=== PATIENT | female | born 1995 ===

== ENCOUNTER 2017-06-15 18:30 | Emergency (ER) | payer MEDICAID ==
--- NOTE | 2017-06-15 19:40 | C.PDOC ---
History Of Present Illness 21 y/o female, 18 weeks preg, c/o right sided headache x 3 days, gradual onset, similar to headaches she has had in the past. +associated photophobia, nauseous yesterday, none today, no neck pain or stiffness. no fever or chills. no vision changes. pt denies abdominal pain and vaginal bleeding. pt reports taking one tab 500 mg tylenol per day for the first 2 days with mild relief and two tabs today, at 9 am and 3 pm with mild relief. Time Seen by Provider: 06/15/17 19:23 Chief Complaint (Nursing): Headache History Per: Patient History/Exam Limitations: no limitations Onset/Duration Of Symptoms: Days (3) Current Symptoms Are (Timing): Still Present Severity: Moderate Quality: "Pain" Preceeding Symptoms: denies: Visual Disturbances Associated Symptoms: Photophobia, Nausea. denies: Blurred Vision, Vomiting, Extremity Weakness Past Medical History Reviewed: Historical Data, Nursing Documentation, Vital Signs Vital Signs: Last Vital Signs Temp 97.8 F 06/15/17 20:46 Pulse 85 06/15/17 20:46 Resp 16 06/15/17 20:46 BP 97/64 L 06/15/17 20:46 Pulse Ox 99 06/15/17 20:46 - Medical History PMH: No Chronic Diseases Surgical History: Appendectomy Family History: States: Unknown Family Hx - Social History Hx Tobacco Use: No Hx Alcohol Use: No Hx Substance Use: No - Immunization History Hx Tetanus Toxoid Vaccination: No Hx Influenza Vaccination: No Hx Pneumococcal Vaccination: No Review Of Systems Constitutional: Negative for: Fever, Chills Eyes: Negative for: Pain, Vision Change, Conjunctivae Inflammation ENT: Negative for: Throat Pain Gastrointestinal: Positive for: Nausea. Negative for: Vomiting, Abdominal Pain Genitourinary: Negative for: Vaginal Discharge, Vaginal Bleeding Musculoskeletal: Negative for: Neck Pain Skin: Negative for: Rash Neurological: Positive for: Headache. Negative for: Weakness, Numbness, Dizziness Physical Exam - Physical Exam Appears: Non-toxic, No Acute Distress Skin: Warm, Dry Head: Atraumatic, Normacephalic Eye(s): bilateral: Normal Inspection, PERRL, EOMI Ear(s): Bilateral: Normal Oral Mucosa: Moist Tongue: Normal Appearing Lips: Normal Appearing Throat: No Erythema Neck: Normal ROM, No Midline Cervical Tenderness, Supple Chest: Symmetrical, No Deformity, No Tenderness Cardiovascular: Rhythm Regular, No Murmur Respiratory: Normal Breath Sounds, No Rales, No Rhonchi, No Wheezing Gastrointestinal/Abdominal: Soft, No Tenderness, Other (gravid) Neurological/Psych: Oriented x3, Normal Speech, Normal Cognition, Normal Cranial Nerves, Normal Motor, Normal Sensation ED Course And Treatment O2 Sat by Pulse Oximetry: 100 Medical Decision Making Medical Decision Makin21 y/o female with right sided headache similar to other headaches in past; normal neuro exam; will treat with reglan ivpb and tylenol, re-eval. 828 pm pt reports headache completely resolved. 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 Disposition Counseled Patient/Family Regarding: Diagnosis, Need For Followup - Disposition Referrals: [facility] [Outside] Disposition: HOME/ ROUTINE Disposition Time: 20:30 Condition: IMPROVED Additional Instructions: Noble un seguimiento con casey mdico de atencin primaria o en la clnica mdica en los prximos lou para discutir los sebastian de dianna frecuentes. Vuelva al ER para cualquier sntoma que empeora. Instructions: Migraine Headache (ED), Tension Headache (ED) Forms: Gen Discharge Inst Belgian, [employer] (Belgian) Print Language: NEPALI - Clinical Impression Clinical Impression: Headache
[2017-06-15] MEDS ORDERED: Sodium Chloride 0.9% 1,000 ML ONE (19:59)
[2017-06-15 20:47] VITALS: BP 97/64; PULSE 85; RESP 16; TEMP 97.8
[2017-06-15 22:13] VITALS: O2SAT 100
== END 2017-06-15 20:48 | disposition home or self-care (01) ==
LOC: C.ER 18:30
DX: O26.892 Other specified pregnancy related conditions, second trimester (principal); Z3A.18 18 weeks gestation of pregnancy
CPT/HCPCS: 96374; 99284; J2765

== ENCOUNTER 2017-11-06 02:48 | Inpatient (IN) | payer BC, MEDICAID ==
[2017-11-06] MEDS ORDERED: Lactated Ringer's 1,000 ML IV SCH (03:15)
[2017-11-06] MEDS ORDERED: Nalbuphine 20 mg/ml Inj (1 ml) IVP ONE (03:15)
--- NOTE | 2017-11-06 03:16 | OBADHP ---
Datetime: 11/06/2017 03:11 Admit Comment, IP Provider: chief compalint-contractions HPI 22 y/o at 39 wga with c/o abdominal pain and contractions.rates the paijn as 05/13.deneis vaginal bleeding or loss of fkuid course- care with [facility] PMH denies PSH apendectomy and ptrocedure on fallopian tubes OBGYN HX '; sab at 8 weeks Social hx denies tobacco,alcohol or illicit drug use Exam see exam section A/P 22 y/o at 39 wga in early labor.GBS nerg -admit -see orders Pelvic Type - PN: Adequate Extremities - PN: Normal Abdomen - PN: Normal Back - PN: Normal Breast - PN: Normal Lungs - PN: Normal Heart - PN: Normal Neurologic - PN: Normal General - PN: Normal Weight - Estimated: 3200 Presentation-Admit: Vertex Contraction Comments Provider: irregular Gestation - Est Wks by US: 39.0 IP Hx Assessment: The History has been Reviewed and is Current Vital Signs Provider: Reviewed; Within Normal Limits IP Chief Complaint: Uterine contractions FHR Category Provider Fetus A: Category I Dilatation, Provider: 1-2 Effacement, Provider: 70 Station, Provider: -2 Genitourinary Exam: Normal DTRs - PN: Normal EGA AdmitDate IP: 39.0 IP Adm Impression: Term, intrauterine IP Admit Plan: Admit to unit; Initiate labor protocol
[2017-11-06 03:40] LABS: BASO # 0.1 K/uL (0.0-0.2); BASO % 0.6 % (0.0-2.0); EOS # 0.1 K/uL (0.0-0.7); EOS % 0.9 % (0.0-4.0); HEMOGLOBIN 13.8 g/dL (11.0-16.0); LYMPH # 2.7 K/uL (1.0-4.3); LYMPH % 22.6 % (20.0-40.0); MEAN CELL VOLUME 91.8 fL (81.0-99.0); MEAN CORPUSCULAR HEMOGLOBIN 32.5 pg (27.0-31.0); MEAN CORPUSCULAR HGB CONC 35.3 g/dL (33.0-37.0); MEAN PLATELET VOLUME 10.2 fL (7.2-11.7); MONO # 0.8 K/uL (0.0-0.8); MONO % 6.4 % (0.0-10.0); NEUT # 8.3 K/uL (1.8-7.0); NEUT % 69.5 % (50.0-75.0); RBC 4.26 Mil/uL (3.80-5.20); RED CELL DISTRIBUTION WIDTH 13.7 % (11.5-14.5); WHITE BLOOD COUNT 11.9 K/uL (4.8-10.8)
[2017-11-06 03:42] LABS: SQUAMOUS EPITHIAL 13 /hpf (0-5); URINE BACTERIA RARE (<OCC); URINE BILIRUBIN NEGATIVE (NEGATIVE); URINE BLOOD NEGATIVE (NEGATIVE); URINE CLARITY Hazy (Clear); URINE COLOR Yellow (YELLOW); URINE GLUCOSE (UA) NORMAL (Normal); URINE LEUKOCYTE ESTERASE NEG Leu/uL (Negative); URINE NITRATE NEGATIVE (NEGATIVE); URINE PROTEIN NEGATIVE (NEGATIVE); URINE UROBILINOGEN NORMAL mg/dL (0.2-1.0)
[2017-11-06 03:51] LABS: ALB/GLOB RATIO 1.1 (1.0-2.1); ALBUMIN 3.4 g/dL (3.5-5.0); ALT/SGPT 21 U/L (9-52); AST/SGOT 22 U/L (14-36); BLOOD UREA NITROGEN 6 mg/dL (7-17); CALCIUM 9.1 mg/dl (8.6-10.4); GFR AFRICAN-AMERICAN > 60; GFR NON-AFRICAN AMERICAN > 60
[2017-11-06] MEDS ORDERED: Nalbuphine 20 mg/ml Inj (1 ml) ONE (03:54)
[2017-11-06] MEDS ORDERED: Fentanyl/Bupivacaine HCl 250 ML EPI ONE (06:22)
--- NOTE | 2017-11-06 08:11 | OBPN ---
Datetime: 11/06/2017 08:09 IP Progress Impression: Normal progression of labor IP Procedures: Sterile Vag Exam IP Progress Plan: Continue present management; Augmentation Contraction Comments Provider: irregular IP Progress Note Comment: S-patient comfortable with epidural O-VSS AFberile FHT cat1 Tooc irregular ctx sve 3-4/80/-2 A/P Patient in labor at 39 wga -start pit for augmentation -monitor closely FHR Category Provider Fetus A: Category I Dilatation, Provider: 3-4 Effacement, Provider: 80 Station, Provider: -2 Datetime: 11/06/2017 03:11 Gestation - Est Wks by US: 39.0 Weight - Estimated: 3200 Presentation-Admit: Vertex Vital Signs Provider: Reviewed; Within Normal Limits
[2017-11-06] MEDS ORDERED: Oxytocin 30 UNIT 30 UNITS/500 ML BAG IV PRN (08:12)
[2017-11-06] MEDS ORDERED: Oxytocin 30 UNIT 30 UNITS/500 ML BAG IV ONE (09:13)
[2017-11-06] MEDS ORDERED: Lidocaine 2% Inj (20ml) ONE (13:47)
[2017-11-06] MEDS ORDERED: Benzocaine/Menthol 20%-0.5% Topical Spray (60 ml) TOP PRN (14:01)
[2017-11-06] MEDS ORDERED: Oxycodone/Acetaminophen 5/325 mg Tab PO PRN ×2 (14:01→14:33)
--- NOTE | 2017-11-06 14:32 | OBDS ---
DELIVERY PERSONNEL Delivery Doctor: Renate Elder MD Base Ply Hand: Monty Noble RN Anesthesiologist: Jaiden MATERNAL INFORMATION Delivery Anesthesia: Epidural Estimated Blood Loss (ml): 300 Placenta Cultured: No Maternal Complications: None Provider Comments: of a male body and shoulders delivered without difficulty 'cord clamped and cut cord blood collected placenta sponatneously delivered.right and left labial lacetayion repaired with 3-0 chromic Fundus firm patient stable ebl 300cc apgars 9/9 at 1 and 5 min of life LABOR SUMMARY EDC: 11/13/2017 00:00 No. Babies in Womb: 1 Attempted: No Labor Anesthesia: Epidural LABOR INFORMATION Reason for Induction: Not Applicable Onset of Labor: 11/06/2017 02:00 Complete Dilatation: 11/06/2017 13:45 Oxytocin: Augmentation Group B Beta Strep: Negative Antibiotics # of Doses: 0 Steroids Given: None Reason Steroids Not Administered: Not Applicable MEMBRANES Membranes Rupture Method: Spontaneous Amniotic Fluid Color: Clear Amniotic Fluid Amount: Moderate Amniotic Fluid Odor: Normal STAGES OF LABOR Stage 1 hrs: 11 Stage 1 min: 45 Stage 2 hrs: 0 Stage 2 min: 32 Stage 3 hrs: 0 Stage 3 min: 3 Total Time in Labor hrs: 12 Total Time in Labor min: 20 VAGINAL DELIVERY Episiotomy: None Laceration Extension: First Degree Laceration Repair: Yes Laceration Repair Note: right and left labial lacetayion repaired with 3-0 chromic Sponge Count Correct: Yes; Vaginal Sweep Performed Sharps Count Correct: Yes BABY A INFORMATION Infant Delivery Date/Time: 11/06/2017 14:17 Method of Delivery: Vaginal Born in Route : No : N/A Forceps: N/A Vacuum Extraction: N/A Shoulder Dystocia : No SHOULDER DYSTOCIA BABY A Delivery Date/Time: 11/06/2017 14:17 PRESENTATION/POSITION BABY A Presentation: Cephalic Breech Presentation: N/A PLACENTA INFORMATION BABY A Placenta Delivery Time : 11/06/2017 14:20 Placenta Method of Delivery: Spontaneous Placenta Status: Delivered SCORES BABY A Heart Rate 1 min: >100 bpm Resp Effort 1 min: Good Cry Reflex Irritability 1 min: Cough or Sneeze or Pulls Away Muscle Tone 1 min: Active Motion Color 1 min: Body [place], Extremities Blue Resuscitation Effort 1 min: Tactile Stimulation SCORE 1 MIN: 9 Heart Rate 5 min: >100 bpm Resp Effort 5 min: Good Cry Reflex Irritability 5 min: Cough or Sneeze or Pulls Away Muscle Tone 5 min: Active Motion Color 5 min: Body [place], Extremities Blue Resuscitation Effort 5 min: N/A SCORE 5 MIN: 9 INFANT INFORMATION BABY A Gestational Age at Delivery: 39.0 Gestational Status: Term Outcome : Liveborn Infant Condition : Stable Infant Sex: Male IDENTIFICATION/MEDS BABY A ID Band Number: [id number] ID Band Location: Left Leg; Left Arm Sensor Applied: Yes Sensor Number: [id number] Sensor Location : Cord Clamp WEIGHT/LENGTH BABY A Birthweight (gms): 3975 Infant Weight (lb): 8 Infant Weight (oz): 12 Length Inches: 21.00 Infant Length cms: 53.3 CORD INFORMATION BABY A No. Cord Vessels: 3 Nuchal Cord : N/A Cord Blood Taken: Yes Infant Suction: Mouth; Nose
[2017-11-07 07:58] LABS: BASO % 0.3 % (0.0-2.0); EOS # 0.1 K/uL (0.0-0.7); EOS % 0.6 % (0.0-4.0); HEMOGLOBIN 13.1 g/dL (11.0-16.0); LYMPH # 2.7 K/uL (1.0-4.3); LYMPH % 17.9 % (20.0-40.0); MEAN CELL VOLUME 93.6 fL (81.0-99.0); MEAN CORPUSCULAR HEMOGLOBIN 32.7 pg (27.0-31.0); MEAN CORPUSCULAR HGB CONC 34.9 g/dL (33.0-37.0); MEAN PLATELET VOLUME 10.4 fL (7.2-11.7); MONO % 6.5 % (0.0-10.0); NEUT # 11.4 K/uL (1.8-7.0); NEUT % 74.7 % (50.0-75.0); NRBC % 0.1 % (0.0-2.0); RBC 4.01 Mil/uL (3.80-5.20); RED CELL DISTRIBUTION WIDTH 13.9 % (11.5-14.5); WHITE BLOOD COUNT 15.3 K/uL (4.8-10.8)
[2017-11-07] MEDS: Multiple Vitamins Tab PO SCH (10:14)
--- NOTE | 2017-11-07 15:01 | OBPPN ---
Datetime: 11/07/2017 14:49 PP Pain Prov: Within normal limits PP Nausea Prov: Denies PP Flatus Prov: Yes PP BM Prov: No PP Breasts Prov: Normal PP Heart Prov: Normal PP Lungs Prov: Normal PP Abdomen/Uterus Prov: Normal PP Lochia Prov: Normal PP Vulva/Perineum Prov: Normal PP CVA Tenderness Prov: Normal PP Extremities Prov: Normal PP C/S Incision Prov: Not Applicable PP Progress Prov: Normal PP Comments Phys Exam Prov: Abdomen: Soft. Non distended. Fundus firm, mobile, minimally tender, 1 F B above umbilicus. Mobile lochia rubra. Extremities: no calf tenderness. All other systems reviewed and are negative PP Impression Prov: Normal progression PP Plan Prov: Continue present management PP Progress Note Prov: Patient received in room 450; mother assisting her. No significant complaints : breast- and bottlefeeding. (+) flatus. (+) BM. P.E.: as above. Mildly obese, in NAD. Awake, alert, oriented to time, person and place. - PPD#1 H/H 13.1/37.6. Rh(+) Assessment: PPD#1, 22 y.o. P1011, S/P . Afebrile, vital signs stable. Clinically stable. Plan: 1) Continue present management 2) Anticipate discharge home 11/08/17 Vital Signs Provider PP: Reviewed; Within Normal Limits
[2017-11-07 16:11] VITALS: O2SAT 98
--- NOTE | 2017-11-08 07:34 | OBPPN ---
Datetime: 11/08/2017 07:30 PP Pain Prov: Within normal limits PP Nausea Prov: Denies PP Flatus Prov: Yes PP Abdomen/Uterus Prov: Normal PP Lochia Prov: Normal PP Extremities Prov: Normal PP Comments Phys Exam Prov: fudus below umblic ext no edema,no calf ten PP Impression Prov: Normal progression PP Plan Prov: Discharge PP Progress Note Prov: pt was seen at bed side, pain under control,no n/v, tolerating deit,voiding,m in lochia, flatuas+ ppd#2 s/p dc home no sex morein prn f/u in 6week Vital Signs Provider PP: Reviewed; Within Normal Limits
--- NOTE | 2017-11-08 07:34 | OBDCSUM ---
Datetime: 11/08/2017 07:32 Discharged to, Provider: Home Follow up at, Provider: 6wek Discharge Diagnosis, Provider: Term Delivered Follow up in weeks, Provider: clinic Disch Activity Restrictions: No exercising; No lifting; No driving; Minimize walking; Minimize stair -climbing; No sexual activity; Nothing in vagina - Tobin, tampons, douche Discharge Comment, Provider: no sex motrin prn f/u inn 6week
[2017-11-08] MEDS: Multiple Vitamins Tab PO SCH (10:53)
[2017-11-08 20:11] VITALS: BP 107/73; PULSE 84; RESP 18; TEMP 97.6
== END 2017-11-08 14:00 | disposition home or self-care (01) | DRG 775 ==
LOC: C.EROB 02:48 → C.4D 03:08 → C.4M 16:54
PROVIDERS: ADMIT Student in an Organized Health Care Education/Training Program; ATTEND Student in an Organized Health Care Education/Training Program
PROC: 10E0XZZ Delivery of Products of Conception, External Approach (ICD-10-PCS; principal; 2017-11-06)
PROC: 0HQ9XZZ Repair Perineum Skin, External Approach (ICD-10-PCS; 2017-11-06)
DX: O70.0 First degree perineal laceration during delivery (principal); Z37.0 Single live birth; Z3A.39 39 weeks gestation of pregnancy

== ENCOUNTER 2018-06-04 15:49 | Emergency (ER) | payer BC ==
[2018-06-04] MEDS ORDERED: Sodium Chloride 0.9% 1,000 ML IV ONE (16:40)
--- NOTE | 2018-06-04 17:00 | C.PDOC ---
History Of Present Illness 22 y/o female presents to ED c/o abdominal pain, vomiting, and diarrhea for the past 10 hours. She reports eating sausage. Notes remote history of appendectomy. Denies fever, or other complaints. Time Seen by Provider: 06/04/18 16:27 Chief Complaint (Nursing): Abdominal Pain History Per: Patient History/Exam Limitations: no limitations Past Medical History Reviewed: Historical Data, Nursing Documentation, Vital Signs Vital Signs: Last Vital Signs Temp 97.9 F 06/04/18 20:50 Pulse 90 06/04/18 20:50 Resp 18 06/04/18 20:50 BP 130/83 06/04/18 20:50 Pulse Ox 98 06/04/18 23:17 - Medical History PMH: Denies: Depression, Diabetes, HTN Surgical History: Appendectomy - [facility] Procedures DELIVERY OF PRODUCTS OF CONCEPTION, EXTERNAL APPROACH (11/06/17) REPAIR PERINEUM SKIN, EXTERNAL APPROACH (11/06/17) Family History: States: Unknown Family Hx - Social History Hx Tobacco Use: No Hx Alcohol Use: No Hx Substance Use: No - Immunization History Hx Tetanus Toxoid Vaccination: No Hx Influenza Vaccination: No Hx Pneumococcal Vaccination: No Review Of Systems Except As Marked, All Systems Reviewed And Found Negative. Constitutional: Negative for: Fever, Chills Gastrointestinal: Positive for: Nausea, Vomiting, Abdominal Pain, Diarrhea Physical Exam - Physical Exam Appears: Non-toxic, No Acute Distress, Other (obese) Skin: Normal Color, Warm, Dry Head: Atraumatic, Normacephalic Eye(s): bilateral: Normal Inspection Cardiovascular: Rhythm Regular Respiratory: Normal Breath Sounds, No Rales, No Rhonchi, No Wheezing Gastrointestinal/Abdominal: Soft, Tenderness (epigastric), No Guarding, No Rebound Back: No CVA Tenderness Extremity: Normal ROM Neurological/Psych: Oriented x3, Normal Speech ED Course And Treatment - Laboratory Results Result Diagrams: 06/04/18 17:17 06/04/18 17:17 O2 Sat by Pulse Oximetry: 98 Pulse Ox Interpretation: Normal Against Medical Advice - AMA Patient Left Against Medical Advice: The patient declines admission to the hospital and wishes to leave the Emergency Department. This action is against my medical advice. This decision was made with informed refusal. The patient was told that admission to the hospital is necessary. Explanation of the reasons why were discussed. The risks of leaving were explained to the patient and include, but are not limited to, worsening of known or currently unknown conditions, permanent disability and from undiagnosed or untreated conditions. The patient has the capacity to make this informed decision and understands my explanation of the current medical problem and risks of leaving. The patient voluntarily accepts these risks and signed an AMA form documenting our conversation. The patient was given the opportunity to ask questions and reconsider. The patient was encouraged to return to the Emergency Department at any time for further care. Medical Decision Making Medical Decision Making: ro gastris pud gallbladder pathology Plan: Blood work Urinalysis Protonix Zofran IV fluids noted ct resutls. pt reports taking Tums mine captain. noted posssibel gallstone. noted leukocytosis. US ordered, but later pt states "she needs to get home" and refuses us. understands risks of possible cholecysitits. info explained via assistant site manager bedside. signs AMA. Disposition - Disposition Referrals: [facility] [Outside] [facility] [Outside] Mich Salazar MD [Staff Provider] - Disposition: AGAINST MEDICAL ADVICE Disposition Time: 23:00 Condition: STABLE Additional Instructions: return to er with worsening symptoms or concerns. please follow up with specialist. return to er with worsening symptoms or concenrs. please discuss all results with your doctor/clinic. you may need further testing as an outpatient. you are declining an us of your abdomen. return to er with worsening symptoms or concerns. Prescriptions: Famotidine [Pepcid] 20 mg PO DAILY #20 tab Instructions: Acute Abdomen (Belly Pain), Gallstones (DC), Leaving Against Medical Advice Forms: [facility] (Korean) Print Language: GREEK - Clinical Impression Clinical Impression: Abdominal pain, Left against medical advice - Scribe Statement The provider has reviewed the documentation as recorded by the Scribe Alysha Lee All medical record entries made by the Scribe were at my direction and personally dictated by me. I have reviewed the chart and agree that the record accurately reflects my personal performance of the history, physical exam, medical decision making, and the department course for this patient. I have also personally directed, reviewed, and agree with the discharge instructions and disposition.
[2018-06-04 17:21] LABS: HCG,QUALITATIVE URINE NEGATIVE (NEGATIVE)
[2018-06-04 17:23] LABS: BASO % 0.2 % (0.0-2.0); EOS % 0.1 % (0.0-4.0); HEMOGLOBIN 15.3 g/dL (11.0-16.0); LYMPH # 1.3 K/uL (1.0-4.3); LYMPH % 11.1 % (20.0-40.0); MEAN CELL VOLUME 89.1 fL (81.0-99.0); MEAN CORPUSCULAR HEMOGLOBIN 30.3 pg (27.0-31.0); MEAN PLATELET VOLUME 9.9 fL (7.2-11.7); MONO # 0.2 K/uL (0.0-0.8); NEUT # 10.2 K/uL (1.8-7.0); NEUT % 86.6 % (50.0-75.0); RBC 5.06 Mil/uL (3.80-5.20); RED CELL DISTRIBUTION WIDTH 14.1 % (11.5-14.5); WHITE BLOOD COUNT 11.8 K/uL (4.8-10.8)
[2018-06-04 17:25] LABS: SQUAMOUS EPITHIAL 2 /hpf (0-5); URINE BACTERIA RARE (<OCC); URINE BILIRUBIN NEGATIVE (NEGATIVE); URINE BLOOD NEGATIVE (NEGATIVE); URINE CLARITY Hazy (Clear); URINE COLOR Yellow (YELLOW); URINE GLUCOSE (UA) NORMAL (Normal); URINE LEUKOCYTE ESTERASE NEG Leu/uL (Negative); URINE PROTEIN 2+ mg/dL (NEGATIVE); URINE UROBILINOGEN NORMAL mg/dL (0.2-1.0)
[2018-06-04 17:31] LABS: ALB/GLOB RATIO 1.2 (1.0-2.1); ALBUMIN 4.5 g/dL (3.5-5.0); ALT/SGPT 37 U/L (9-52); AST/SGOT 17 U/L (14-36); BILIRUBIN,DIRECT 0.4 mg/dL (0.0-0.4); BLOOD UREA NITROGEN 9 mg/dL (7-17); CALCIUM 9.5 mg/dl (8.6-10.4); GFR NON-AFRICAN AMERICAN > 60; INR 1.2; LIPASE 40 U/L (23-300); PROTHROMBIN TIME 12.9 SECONDS (9.7-12.2)
[2018-06-04] MEDS ORDERED: Iodixanol 320 MG/ML 100 ML BOTTLE IV ONE (18:38)
[2018-06-04] MEDS ORDERED: DiphenhydrAMINE 50 mg/ml Inj IVP STA (20:10)
[2018-06-04] MEDS ORDERED: DiphenhydrAMINE 50 mg/ml Inj ONE (20:28)
[2018-06-04 20:57] VITALS: BP 130/83; PULSE 90; RESP 18; TEMP 97.9
[2018-06-04 23:13] VITALS: O2SAT 98
--- NOTE | 2018-06-05 13:05 | CT ---
Date of service: 06/04/2018 PROCEDURE: CT scan abdomen pelvis HISTORY: Upper abdominal pain, vomiting, diarrhea COMPARISON: None. TECHNIQUE: Contiguous axial images of the abdomen and pelvis performed following intravenous contrast injection. Additional 2D sagittal and coronal reformats generated. This CT exam was performed using one or more of the following dose reduction techniques: Automated exposure control, adjustment of the mA and/or kV according to patient size, and/or use of iterative reconstruction technique. Contrast dose: 100 cc Visipaque 320 Radiation dose: Total exam DLP = 920.65 mGy-cm. FINDINGS: LOWER THORAX: Heart size normal. No significant pericardial effusion. Tiny hiatal hernia. Lung thomas clear without focal consolidation or effusion. LIVER: Liver is upper limits of normal measuring approximately 18 cm in CC dimension. Mild fatty hepatic infiltration. No obvious hepatic mass collection or calcification. Portal and splenic veins are opacified. GALLBLADDER AND BILE DUCTS: Gallbladder is physiologically distended. No evidence of intraluminal gallbladder calculi. PANCREAS: Unremarkable. No mass. No ductal dilatation. SPLEEN: Unremarkable. No splenomegaly. ADRENALS: No adrenal lesions. KIDNEYS AND URETERS: Kidneys demonstrate symmetric nephrograms. There are 2 tiny on calculi adjacent to 1 another upper pole collecting system of both measuring under 3 mm. No other renal calculi. . No evidence of hydronephrosis. BLADDER: The urinary bladder is incompletely distended which presumably accounts for thick-walled appearance correlation with urinalysis however. REPRODUCTIVE: Suspect few small follicular cyst left adnexa. APPENDIX: Appendix not seen with complete certainty however no obvious inflammatory changes right lower quadrant of the abdomen BOWEL: Evaluation of the bowel is limited due to the lack of oral contrast. Stomach is incompletely distended. . There are hyperdense foci seen within the lumen of the stomach as well as proximal small bowel on. Visualized loops of small bowel exhibit normal contour and caliber with no evidence of acute mechanical bowel obstruction. Stool and air seen throughout the at ascending transverse colon. Most of the descending and sigmoid colon are relatively collapsed. . Slight wall thickening of a short segment of the distal sigmoid/rectal junction which could be due to incomplete distention, peristalsis and unopacified stool. Clinical correlation recommended. PERITONEUM: Suspect small amount of free fluid in the cul de sac. No gross free intraperitoneal air. No free air. Small fat containing umbilical hernia. LYMPH NODES: Unremarkable. No enlarged lymph nodes. VASCULATURE: Unremarkable. No aortic aneurysm. BONES: No fracture or destructive lesion. OTHER FINDINGS: Note made of some vague infiltration changes subcutaneous fat anterior abdominal wall right pelvis region. IMPRESSION: Mild fatty hepatic infiltration. The appendix is not seen with complete certainty however no obvious inflammatory change right lower quadrant of the abdomen. Two small nonobstructing calculi upper pole collecting system right kidney. Suspect small amount of free fluid in the cul de sac. Probable cluster of follicular cyst left ovary. Note made of some vague infiltration changes subcutaneous fat anterior abdominal wall right pelvis region ; rule out mild inflammation/ cellulitis. .
== END 2018-06-04 20:50 | disposition left against medical advice (07) ==
LOC: C.ER 15:49
DX: R10.9 Unspecified abdominal pain (principal)
CPT/HCPCS: 74177; 80053; 81001; 82248; 83690; 84703; 85025; 85610; 85730; 96361; 96374; 96375; 99284; C9113; J1200; J2405; J2765; J7030; Q9967

== ENCOUNTER 2018-10-26 14:13 | Emergency (ER) | payer BC ==
[2018-10-26] MEDS ORDERED: Sodium Chloride 0.9% 1,000 ML IV ONE ×2 (15:04→16:12)
[2018-10-26] MEDS ORDERED: Dexamethasone 4 mg/1 ml IVP STA (15:22)
[2018-10-26] MEDS ORDERED: Sodium Chloride 0.9% 1,000 ML ONE ×2 (15:23→16:55)
[2018-10-26 15:26] LABS: BASO # 0.1 K/uL (0.0-0.2); BASO % 0.3 % (0.0-2.0); EOS % 0.1 % (0.0-4.0); HEMOGLOBIN 14.2 g/dL (11.0-16.0); LYMPH # 1.2 K/uL (1.0-4.3); LYMPH % 5.5 % (20.0-40.0); MEAN CELL VOLUME 90.7 fL (81.0-99.0); MEAN CORPUSCULAR HEMOGLOBIN 30.1 pg (27.0-31.0); MEAN CORPUSCULAR HGB CONC 33.2 g/dL (33.0-37.0); MONO # 0.8 K/uL (0.0-0.8); MONO % 3.8 % (0.0-10.0); NEUT # 19.6 K/uL (1.8-7.0); NEUT % 90.3 % (50.0-75.0); PLATELET COUNT 236 K/uL (130-400); RBC 4.73 Mil/uL (3.80-5.20); RED CELL DISTRIBUTION WIDTH 14.1 % (11.5-14.5)
[2018-10-26 15:28] LABS: WHITE BLOOD COUNT 21.7 K/uL (4.8-10.8)
[2018-10-26 15:38] LABS: ALB/GLOB RATIO 1.3 (1.0-2.1); ALBUMIN 4.3 g/dL (3.5-5.0); ALT/SGPT 29 U/L (9-52); AST/SGOT 25 U/L (14-36); BLOOD UREA NITROGEN 6 mg/dL (7-17); CALCIUM 8.5 mg/dl (8.6-10.4); GFR NON-AFRICAN AMERICAN > 60
--- NOTE | 2018-10-26 15:40 | C.PDOC ---
History Of Present Illness 23 y/o female presents to the ER complaining of flu-like symptoms including cough, nasal congestion, and sore throat which has been present for the past few days. Patient states that she has associated vomiting and diarrhea. Denies h aving fever and chills. Time Seen by Provider: 10/26/18 14:47 Chief Complaint (Nursing): Flu-like Symptoms History Per: Patient History/Exam Limitations: no limitations Onset/Duration Of Symptoms: Days Current Symptoms Are (Timing): Still Present Severity: Moderate Past Medical History Reviewed: Historical Data, Nursing Documentation, Vital Signs Vital Signs: Last Vital Signs Temp 99.4 F 10/26/18 14:16 Pulse 150 H 10/26/18 14:16 Resp 22 10/26/18 14:16 BP 121/82 10/26/18 14:16 Pulse Ox 97 10/26/18 14:16 - Medical History PMH: Denies: Depression, Diabetes, HTN Surgical History: Appendectomy - [facility] Procedures DELIVERY OF PRODUCTS OF CONCEPTION, EXTERNAL APPROACH (11/06/17) REPAIR PERINEUM SKIN, EXTERNAL APPROACH (11/06/17) Family History: States: No Known Family Hx - Social History Hx Tobacco Use: No Hx Alcohol Use: No Hx Substance Use: No - Immunization History Hx Tetanus Toxoid Vaccination: No Hx Influenza Vaccination: No Hx Pneumococcal Vaccination: No Review Of Systems Except As Marked, All Systems Reviewed And Found Negative. Constitutional: Positive for: Malaise. Negative for: Fever, Chills ENT: Positive for: Throat Pain Respiratory: Positive for: Cough Gastrointestinal: Positive for: Vomiting, Diarrhea. Negative for: Abdominal Pain Physical Exam - Physical Exam Appears: Non-toxic, No Acute Distress Skin: Normal Color, Warm, Dry Head: Atraumatic, Normacephalic Eye(s): bilateral: Normal Inspection Ear(s): Bilateral: Normal Nose: Normal Oral Mucosa: Moist Throat: Erythema, No Exudate, Other (bilateral tonsillar swelling) Neck: Supple Lymphatic: Adenopathy (anterior lymphadenopathy) Chest: Symmetrical Cardiovascular: Rhythm Regular Respiratory: Normal Breath Sounds, No Rales, No Rhonchi, No Wheezing Gastrointestinal/Abdominal: Soft, No Tenderness, No Guarding, No Rebound Neurological/Psych: Oriented x3, Normal Speech ED Course And Treatment - Laboratory Results Result Diagrams: 10/26/18 17:39 10/26/18 15:22 Lab Interpretation: Abnormal Urine POC: Negative ECG: Interpreted By Me ECG Rhythm: Sinus Tachycardia ECG Interpretation: No Acute Changes Rate From EC O2 Sat by Pulse Oximetry: 97 (RA) Pulse Ox Interpretation: Normal - Radiology CXR: Interpreted by Me CXR Interpretation: Yes: No Acute Disease Progress Note: Treated with IVF NSS, tylenol and decadron. Treated with rocephin 1 gm IV. On re-evaluation tolerating PO. Attemt to contact Dr Presley Reassessment Condition: Improved Disposition Counseled Patient/Family Regarding: Studies Performed, Diagnosis, Need For Followup - Disposition Referrals: Yaneth Presley MD [Medical Doctor] - Disposition: HOME/ ROUTINE Disposition Time: 18:00 Condition: IMPROVED Prescriptions: Amoxicillin/Potassium Clav [Amox-Clav 875-125 mg Tablet] 1 each PO BID #14 tablet Instructions: Fever of Unknown Origin, Sore Throat, Adult (DC) Forms: [employer] (Sri [place]ankan) - Clinical Impression Clinical Impression: Influenza-like illness - PA / FOOD SAFETY SPECIALIST / Resident Statement MD/DO has reviewed & agrees with the documentation as recorded. - Scribe Statement The provider has reviewed the documentation as recorded by the Dhruv Urrutia Provider Attestation All medical record entries made by the Pradeepibe were at my direction and personally dictated by me. I have reviewed the chart and agree that the record accurately reflects my personal performance of the history, physical exam, medical decision making, and the department course for this patient. I have also personally directed, reviewed, and agree with the discharge instructions and disposition.
[2018-10-26 15:47] LABS: INFLUENZA A B NEGATIVE FOR FLU A/B (NEGATIVE)
[2018-10-26 16:05] LABS: BANDS 10 % (0-2); LYMPHOCYTE 8 % (20-40); MONOCYTE 3 % (0-10); NEUTROPHIL 79 % (50-75); TOTAL CELLS COUNTED 100
[2018-10-26 16:06] LABS: LARGE PLATELETS PRESENT; PLATELET ESTIMATE NORMAL (NORMAL)
--- NOTE | 2018-10-26 17:22 | RAD ---
HISTORY: Cough COMPARISON: None available. TECHNIQUE: Chest PA and lateral FINDINGS: Mild streak artifact presumably related to the patient's hair noted at the right lung apex. LUNGS: No focal consolidation. Please note that chest x-ray has limited sensitivity for the detection of pulmonary masses. PLEURA: No significant pleural effusion identified. No definite pneumothorax . CARDIOVASCULAR: The cardiomediastinal silhouette appears within normal limits of size. No atherosclerotic calcification present. OSSEOUS STRUCTURES: No acute osseous abnormality identified. VISUALIZED UPPER ABDOMEN: Unremarkable. OTHER FINDINGS: None. IMPRESSION: No focal consolidation.
[2018-10-26 17:49] LABS: BASO % 0.2 % (0.0-2.0); EOS # 0.1 K/uL (0.0-0.7); EOS % 0.3 % (0.0-4.0); HEMOGLOBIN 13.4 g/dL (11.0-16.0); LYMPH # 0.8 K/uL (1.0-4.3); LYMPH % 3.6 % (20.0-40.0); MEAN CELL VOLUME 89.3 fL (81.0-99.0); MEAN CORPUSCULAR HGB CONC 32.4 g/dL (33.0-37.0); MEAN PLATELET VOLUME 9.8 fL (7.2-11.7); MONO # 0.3 K/uL (0.0-0.8); MONO % 1.2 % (0.0-10.0); NEUT # 21.2 K/uL (1.8-7.0); NEUT % 94.7 % (50.0-75.0); RBC 4.62 Mil/uL (3.80-5.20); RED CELL DISTRIBUTION WIDTH 14.2 % (11.5-14.5); WHITE BLOOD COUNT 22.4 K/uL (4.8-10.8)
[2018-10-26 18:15] LABS: SQUAMOUS EPITHIAL 5 /hpf (0-5); URINE BILIRUBIN NEGATIVE (NEGATIVE); URINE BLOOD 2+ (NEGATIVE); URINE CLARITY Clear (Clear); URINE COLOR Yellow (YELLOW); URINE GLUCOSE (UA) NORMAL (Normal); URINE LEUKOCYTE ESTERASE NEG Leu/uL (Negative); URINE PROTEIN 1+ mg/dL (NEGATIVE)
[2018-10-26 18:16] LABS: HCG,QUALITATIVE URINE NEGATIVE (NEGATIVE)
[2018-10-26] MEDS ORDERED: cefTRIAXone IV 1 gm in Dextros 50 ML IV ONE (18:24)
[2018-10-26 19:18] VITALS: BP 100/64; PULSE 92; RESP 17; TEMP 98; O2SAT 98
--- NOTE | 2018-10-28 11:23 | CARD ---
APPROVED REPORT Date of service: 10/26/2018 EKG Measurement Heart [id number] QT0T0 QTc0 <Conclusion> No QRS complexes found, no ECG analysis possible
--- NOTE | 2018-10-28 11:23 | CARD ---
APPROVED REPORT Date of service: 10/26/2018 EKG Measurement Heart [id number] <Conclusion> Sinus tachycardia Possible Left atrial enlargement Borderline ECG
== END 2018-10-26 19:29 | disposition home or self-care (01) ==
LOC: C.ER 14:13
DX: J11.1 Influenza due to unidentified influenza virus with other respiratory manifestations (principal)
CPT/HCPCS: 71046; 80053; 81001; 84703; 85025; 87070; 87430; 87804; 96361; 96365; 96375; 99285; J0696; J1100; J2405; J7030